=== PATIENT | female | born 1945 | race Caucasian/White ===

== ENCOUNTER 2021-08-06 01:11 | Inpatient (IN) | payer OTHER ==
[2021-08-06] VITALS (62 sets, daily range): BP systolic 49–154; BP diastolic 31–96
[~2021-08-06] VITALS: Ht 152.4 cm; Wt 112.9 kg
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
[2021-08-06 03:17] LABS: HEMATOCRIT 44.6 % (37.0-47.0); HEMOGLOBIN 14.1 gm/dL (12.0-15.0); MCH 31.5 pg (26.0-34.0); MCHC 31.6 g/dL (28.0-37.0); MCV 99.5 fL (80.0-100.0); PLATELET COUNT 257 thou/uL (150-400); RBC 4.48 mil/uL (4.20-5.00); RDW 16.6 % (10.5-14.5); WBC 13.1 thou/uL (4.0-11.0)
[2021-08-06 03:29] LABS: APTT 21.4 Seconds (24.5-32.8); INR 1.1; PROTIME 11.9 Seconds (10.5-12.1)
[2021-08-06 04:24] LABS: ANISOCYTOSIS 1+
[2021-08-06 04:40] LABS: ALBUMIN 2.7 g/dL (3.4-5.0); CALCIUM 9.8 mg/dL (8.5-10.1); CREATININE 1.8 mg/dL (0.6-1.0); POTASSIUM 4.1 mmol/L (3.5-5.1); TOTAL BILIRUBIN 0.6 mg/dL (0.2-1.0); TOTAL PROTEIN 6.4 g/dL (6.4-8.2)
--- NOTE | 2021-08-06 07:48 | EKG ---
[address] [place] [address] ELECTROCARDIOGRAM REPORT Name: BRIANNE SINHA Jatinder Room #: 208-P ADM IN M.R.#: [id number] Admission: 08/06/21 Attend Phys: Chelita Garcia MD Discharge: Date of : 43 Report #: [id number] [facility] ED Test Date: 2021-08-06 Test Time: 05:07:11 Pat Name: BRIANNE SINHA Department: Room: 208 Gender: F Jig Grinder Set Up Operator: CECI : 1945 Requested By: Aleks Burkett Order Number: [id number] MD: Quan Fernandez Measurements Intervals [place] Rate: 119 P: [place]: QRS: 30 QRSD: 140 T: -45 QT: 344 QTc: 485 Interpretive Statements Atrial fibrillation Right bundle branch block ST depr, consider ischemia, anterolateral lds Baseline wander in lead(s) V5,V6 No previous ECG available for comparison Electronically Signed On 08-06-2021 7:47:37 GASTROINTESTINAL TECHNICIAN by Quan Fernandez [email or web address] <ELECTRONICALLY SIGNED> By: Quan Fernandez MD, [facility] 08/06/21 0747 D: 01/506 6 Quan Fernandez MD, FACC /EPI
[2021-08-06] MEDS ORDERED: BUSPIRONE HCL5 MG PO (08:50)
[2021-08-06] MEDS ORDERED: BUMETANIDE 1 MG1 M1 PO (08:50)
[2021-08-06] MEDS ORDERED: ELIQUIS5 MG PO (08:51)
[2021-08-06] MEDS ORDERED: DOXYCYCLINE HY100 M3 PO (08:51)
[2021-08-06] MEDS ORDERED: METOPROLOL TART25 MG PO (08:52)
[2021-08-06] MEDS ORDERED: NITROGLYCERIN0.4 MG (08:53)
[2021-08-06] MEDS ORDERED: NOVOLOG100 UNIT/1 SUBQ (08:54)
[2021-08-06] MEDS ORDERED: POTASSIUM20 MEQ/15 PO (08:55)
[2021-08-06] MEDS ORDERED: ALPRAZOLAM 0.0.25 M1 PO (08:55)
[2021-08-06] MEDS ORDERED: PREDNISONE 10 M10 MG PO (08:58)
[2021-08-06 10:19] LABS: BE(vivo) -4.9 mmol/L (-2 to +3); HCO3 19.1 mmol/L (22.0-26.0); PCO2 32.1 mmHg (35.0-45.0); PO2 76.7 mmHg (80.0-100.0); pH 7.392 (7.360-7.450); sO2 95.4 % (92.0-98.0)
[2021-08-06 10:48] LABS: HEMATOCRIT 40.6 % (37.0-47.0); MCH 31.9 pg (26.0-34.0); MCHC 29.2 g/dL (28.0-37.0); RBC 3.72 mil/uL (4.20-5.00); RDW 17.4 % (10.5-14.5); WBC 24.9 thou/uL (4.0-11.0)
[2021-08-06 10:52] LABS: HEMOGLOBIN 11.9 gm/dL (12.0-15.0); MCV 109.4 fL (80.0-100.0)
--- NOTE | 2021-08-06 12:45 | NUR ---
ORDERS RECEIVED FOR PT EVAL AND TREAT. Pt JUST TRANSFERRED FROM CCU TO ICU FOR HIGHER LEVEL OF CARE. WILL NEED NEW ORDERS ONCE Pt IS MEDICALLY STABLE TO INITIATE PT EVALUATION.
--- NOTE | 2021-08-06 13:43 | NUR ---
A RIGHT IJ CENTRAL LINE WAS PLACED AFTER A BEDSIDE TIMEOUT WAS COMPLETED. THE 25CM LINE WAS ADVANCED TO 7CM EXTERNAL AFTER A BEDSIDE TIMOEUT WAS COMPLETED. A STAT CHEST XRAY WAS ORDERED FOR CONFIRMATION
[2021-08-06 14:29] LABS: HEMATOCRIT 30.2 % (37.0-47.0)
[2021-08-06 14:37] LABS: CALCIUM 8.7 mg/dL (8.5-10.1); POTASSIUM 3.7 mmol/L (3.5-5.1)
[2021-08-06 14:38] LABS: HEMOGLOBIN 9.5 gm/dL (12.0-15.0)
--- NOTE | 2021-08-06 17:52 | NUR ---
PT BROUGHT TO ROOM 244 FROM 208, COUGHING UP COPIOUS AMOUNTS OF BLOOD, WITH LARGE BRIGHT RED BLOOD CLOTS PRESENT. PT GIVEN SUCTION TO SUCTION HER MOUTH OUT PRN, PT IS ALERT AND ORIENTED TO PERSON PLACE AND EVENTS. DR. MATHEWS AND DR. PATEL AT BEDSIDE AT 1355, TO EXAMINE PATIENT AND WERE AWARE OF PT BEING TRANSFERRED OVER FROM . DR. MATHEWS PERFORMED BRONOSCOPY ON PT AT BEDSIDE IN WHICH HE NOTED BLEEDING FROM THE LEFT LUNG. PT STARTED ON NEOSYNEPHRINE AT 1400 TO HELP MAINTAIN BLOOD PRESSURE SHE WAS BECOMING MORE AND MORE HYPOTENSIVE. PRESSORS RAN FOR APPROX 2-2.5HRS WITH GOOD RESPONSE TO MEDICATIONS. PER DR. LEONE AT BEDSIDE AT 1700 WAS INSTRUCTED TO TURN OFF PT PRESSORS AND TAKE HER FOR STAT CHEST CT SCAN. PT CONTINUES TO COUGH UP LARGE BLOOD CLOTS WITH IT BEING BRIGHT RED IN COLOR. PT TAKEN TO CT WITH 2 RNS, ON O2 VIA NC AT 2LPM. PORTABLE SUCTION ALSO TAKEN FOR PRECAUTIONING REASONS. PT TOELRATED CT SCAN WITHOUT INCIDENT. BLOOD TRANSFUSION STARTED AT 1745. NO FEVERS, PT COOL TO THE TOUCH. PT BREATHING NORMALLY ON NC AT 2LPM. ALSO PER DR. LEONE, PT IS TO RECIEVE 1 UNIT OF BLOOD ANA AND TO TURN ON PRESSORS SHOULD PT NOT BE ABLE TO MAINTAIN A MAP ABOVE 60. PT DAUGHTERS WERE AT BEDSIDE AND ABLE TO VISIT WITH PATIENT AFTER CT SCAN.
[2021-08-06 21:56] LABS: HEMATOCRIT 32.4 % (37.0-47.0); HEMOGLOBIN 10.2 gm/dL (12.0-15.0)
[2021-08-07] VITALS (76 sets, daily range): BP systolic 91–145; BP diastolic 50–102
--- NOTE | 2021-08-07 01:14 | NUR ---
PT FINISHED RECEIVING 1 UNIT PRBCS AROUND 2029. SHE TOLERATED TRANSFUSION WELL. PT CONTINUES TO COUGH UP BRIGHT RED BLOOD WITH CLOTS. COUGH MEDICATION GIVEN. MAP> 65 WITH NEOSYNEPHRINE GTT INFUSING. AFIB ON TELE. HR 110S-120S WHEN PT IS AT REST, BUT INCREASES TO 130S-14OS WITH COUGHING. WHEN HR SUSTAINED 130S-140S, NOTIFIED DR SCANLON. ORDER RECEIVED TO START CARDIZEM GTT. HR HAS IMPROVED WHILE ON CARDIZEM. INCREASED ELENO DRIP TO MAINTAIN BP SUPPORT WHILE ON CARDIZEM. AROUND 2329, PT BECOME MORE ANXIOUS, C/O SOA AND DIFFICULTY BREATHING. LUNGS WITH LOUD CRACKLES NOTED. NOTIFIED BINDERY MANAGER BALL ENDER FOR HOSPITALIST. ORDERS RECEIVED TO GIVE LASIX IV ONE TIME FOR LIKELY FLUID OVERLOAD. SCHAEFER CATHETER ALSO PLACED PER PROVIDER ORDER. PT IS RESTING BETTER AT THIS TIME. WILL CONTINUE TO MONITOR CLOSELY.
[2021-08-07 05:17] LABS: HEMATOCRIT 29.1 % (37.0-47.0); HEMOGLOBIN 9.4 gm/dL (12.0-15.0); MCH 31.4 pg (26.0-34.0); MCHC 32.3 g/dL (28.0-37.0); PLATELET COUNT 222 thou/uL (150-400); RDW 17.2 % (10.5-14.5); WBC 24.7 thou/uL (4.0-11.0)
[2021-08-07 05:18] LABS: MCV 97.2 fL (80.0-100.0)
[2021-08-07 05:37] LABS: CREATININE 2.4 mg/dL (0.6-1.0); POTASSIUM 4.5 mmol/L (3.5-5.1)
--- NOTE | 2021-08-07 06:00 | NUR ---
INCREASED CARDIZEM GTT FROM 5MG/HR TO 10 MG/HR. HR NOW 100S-110S. BP STABLE WITH NEOSYNEPHRINE GTT. POOR URINE OUTPUT VIA SCHAEFER AFTER LASIX WAS GIVEN. PT APPEARS TO BE FEELING SLIGHTLY BETTER THIS MORNING.
[2021-08-07 07:08] LABS: URINE BILIRUBIN NEGATIVE (Negative); URINE BLOOD TRACE (Negative); URINE COLOR YELLOW; URINE GLUCOSE-RANDOM* NEGATIVE (Negative); URINE KETONES NEGATIVE (Negative); URINE LEUKOCYTES-REFLEX 2+ (Negative); URINE NITRITE-REFLEX NEGATIVE (Negative); URINE PROTEIN (DIPSTICK) TRACE (Negative); URINE UROBILINOGEN 0.2 E.U./dl (0.2-1.0)
[2021-08-07 07:09] LABS: URINE CLARITY HAZY
[2021-08-07 07:22] LABS: CASTS None Seen /LPF (None Seen); SQUAMOUS >10 Many /LPF (0-3)
[2021-08-07 07:23] LABS: BACTERIA-REFLEX 1-9 Few /HPF (None Seen); CRYSTALS None Seen /LPF (None Seen); URINE RBC None Seen /HPF (NONE SEEN); URINE WBC-REFLEX >25 Many /HPF (0-5); YEAST-REFLEX Present (None Seen)
--- NOTE | 2021-08-07 08:20 | NUR ---
>>>>>>>>>> 0820 Azalea Medley APRN present. updated on pt status. Dr. Santiago present, updated. >>>>>>>>>> 1100 Dr. George present. updated on pt status, red/dk red bloody clots coughed up several times per hour by pt. she is maintaining her airway, using yankauer to suction orally, in addition to coughing up blood/clots onto bath towel on her chest. pt alert, drowsy at times, anxious at times and prefers not be alone. iv fluids pending with goal for uop 20 cc/hr. >>>>>>>>>> 1400 Dr. George returned call. updated on pt continuing to cough up blood. blood clots clotted the yankauer and suction tubing. within 1 hr, 15 minutes, she clotted new yankauer and the entire suction tubing was filled with additional blood. updated Dr. George, orders received for interventional radiology consult- Dr. Nguyen. consult placed- spoke with Azalea Medley APRN. Dr. Nguyen and Azalea, bradley to speak with pt and called elizabeth Osman for consent. >>>>>>>>>>> report given to GUY Lara RN. at 1508, pt to IR per icu bed with equipment monitor phototypesetting and IR team. >>>>>>>>>>> report received from GUY Lara RN. at 1730, pt received in icu. resp even and unlabored, resting quietly, airway patent, no coughing or evidence of bleeding. calls placed to Dr. Hampton regarding update on pt status since in IR, received IV contrast, pre existing low urine outpt over last 24 hrs, current renal labs. orders received. Dr. George updated on pt status. also, ok with low urine output parameter for tonight. called elizabeth Osman and Raul, brother, updated on procedure and pt outcome. informed pt urine output has been low and iv fluids are infusing. questions answered to satisfaction.
[2021-08-07 10:32] LABS: ABSOLUTE NEUTROPHILS 19.3 thou/uL (1.4-8.2); ANISOCYTOSIS 1+; METAMYELOCYTES 3 %; MYELOCYTES 3 %
--- NOTE | 2021-08-07 13:15 | NUR ---
76-year-old female complaining of coughing up blood. HX:A. fib anticoagulated with Eliquis, CAD status post cardiac stent, history of congestive heart failure with unknown LVEF, hypertension, hyperlipidemia, diabetes, hypothyroidism, anxiety, CKD with unknown stage. Patient does report hospital admission about a week ago at [facility] for chest pain. Patient does report the scope was done (unknown bronchoscopy versus EGD) with normal results. Chart review, Discussed during los with the attending physician. Cont. on Cardizem gtt, o2 per nasal cannula. No anticipated dc today. will cont following as needed for dc needs.
[2021-08-07 14:53] LABS: HEMOGLOBIN 7.7 gm/dL (12.0-15.0); MCH 31.3 pg (26.0-34.0); MCHC 32.1 g/dL (28.0-37.0); MCV 97.6 fL (80.0-100.0); RBC 2.46 mil/uL (4.20-5.00); RDW 17.7 % (10.5-14.5); WBC 22.4 thou/uL (4.0-11.0)
--- NOTE | 2021-08-07 15:24 | 2DMMODE ---
[facility] [address] 2 D/M-MODE ECHOCARDIOGRAM Name: BRIANNE SINHA Room #: 244-P ADM IN M.R.#: [id number] Admission: 08/06/21 Attend Phys: Chelita Garcia MD Discharge: Date of : 43 Report #: [id number] THIS REPORT FOR: cc: Gary Jenkins MD, Srinath MD Santiago, Patrick MD [facility] ~ ADDENDUM APPROVED REPORT Study performed: 08/07/2021 14:19:34 EXAM: Comprehensive 2D, Doppler, and color-flow Echocardiogram Patient Location: ICU Room #: 244 Status: routine BSA: 1.95 HR: 115 bpm BP: 102/78 mmHg Rhythm: Atrial Fibrillation Other Information Study Quality: Good Indications Diabetes Atrial Fibrillation CAD Hypertension/HDD 2D Dimensions IVSd: 7.88 (7-11mm) LVOT Diam: 21.05 (18-24mm) LVDd: 55.58 mm PWd: 10.67 (7-11mm) Ascending Ao: 33.09 (22-36mm) LVDs: 39.98 (25-40mm) Left Atrium: 41.17 (27-40mm) Aortic Root: 30.08 mm IVC: 21.00 mm Aortic Valve AoV Peak Kiran.: 0.77 m/s AO Peak Gr.: 9.05 mmHg LVOT Max P.72 mmHg LVOT Max V: 0.96 m/s PRIYA Vmax: 4.36 cm2 Pulmonary Valve PV Peak Kiran.: 0.77 m/s PV Peak Gr.: 2.36 mmHg [facility] [address] [place] [address] 2 D/M-MODE ECHOCARDIOGRAM Name: WYATTSELINSANKETDasia Tobias Room #: 244-P [facility] IN [facility]#: [id number] Admission: 08/06/21 Attend Phys: Chelita Garcia MD Discharge: Date of : 43 Report #: [id number] Tricuspid Valve TR Peak Kiran.: 2.59 m/s TR Peak Gr.: 26.91 mmHg PA Pressure: 37.00 mmHg Left Ventricle The left ventricle is normal size. There is normal left ventricular wall thickness. The left ventricular systolic function is normal. The left ventricular ejection fraction is within the normal range. LVEF is >55%. This study is not technically sufficient to allow evaluation of the LV diastolic function due to atrial fibrillation. Right Ventricle The right ventricle is normal size. The right ventricular systolic function is normal. Atria Left atrium is dilated. Right atrium is dilated. Aortic Valve The aortic valve is normal in structure. Mild aortic regurgitation. There is no aortic valvular stenosis. Mitral Valve The mitral valve is normal in structure. Trace mitral regurgitation. No evidence of mitral valve stenosis. Tricuspid Valve The tricuspid valve is normal in structure. There is mild tricuspid regurgitation. Estimated PAP 37 mmHg. There is mild pulmonary hypertension. Pulmonic Valve The pulmonary valve is normal in structure. Trace pulmonic regurgitation. Great Vessels The aortic root is normal in size. IVC is dilated and collapses <50% with inspiration. Pericardium There is no pericardial effusion. <Conclusion> [facility] [address] [place] [address] 2 D/M-MODE ECHOCARDIOGRAM Name: WYATTSELINSANKETDasia Tobias Room #: 244-P [facility] IN .R.#: [id number] Admission: 08/06/21 Attend Phys: Chelita Garcia MD Discharge: Date of : 43 Report #: [id number] Study performed in atrial fibrillation Normal left ventricle size/wall thickness Ejection fraction 55% and Normal right ventricular size/function Mild biatrial enlargement Mild aortic valve insufficiency Normal mitral valve structure and function Mild tricuspid valve insufficiency Pulmonary systolic pressure estimated 37 mmHg No pericardial effusion Normal aortic root size. <ELECTRONICALLY SIGNED> By: Quan Fernandez MD, FACC 08/07/21 1524 1524 1524 Quan Fernandez MD, FACC /INF
[2021-08-08] VITALS (71 sets, daily range): BP systolic 93–136; BP diastolic 43–92
[2021-08-08 05:02] LABS: HEMATOCRIT 20.6 % (37.0-47.0); RBC 2.08 mil/uL (4.20-5.00)
[2021-08-08 05:13] LABS: ALBUMIN 2.2 g/dL (3.4-5.0); CREATININE 2.8 mg/dL (0.6-1.0); PHOSPHORUS 5.6 mg/dL (2.5-4.9); POTASSIUM 4.5 mmol/L (3.5-5.1)
[2021-08-08 05:16] LABS: HEMOGLOBIN 6.5 gm/dL (12.0-15.0); MCH 31.5 pg (26.0-34.0); MCHC 31.8 g/dL (28.0-37.0); MCV 98.9 fL (80.0-100.0); RDW 17.3 % (10.5-14.5); WBC 23.4 thou/uL (4.0-11.0)
--- NOTE | 2021-08-08 09:40 | NUR ---
RECEIVED REPORT FROM OUT GOING RN.
--- NOTE | 2021-08-08 11:25 | NUR ---
Discussed during los with the attending physician and during unit rounds with pulmonary MD. Hgb 6.5, getting blood. O2 2 L/nc. Will cont following as needed for dc needs.
[2021-08-08 17:11] LABS: HEMATOCRIT 23.5 % (37.0-47.0); HEMOGLOBIN 7.5 gm/dL (12.0-15.0)
[2021-08-09] VITALS (44 sets, daily range): BP systolic 88–118; BP diastolic 34–77
[2021-08-09 05:29] LABS: HEMOGLOBIN 6.7 gm/dL (12.0-15.0); WBC 21.8 thou/uL (4.0-11.0)
[2021-08-09 05:30] LABS: HEMATOCRIT 20.8 % (37.0-47.0); MCH 31.2 pg (26.0-34.0); MCHC 32.3 g/dL (28.0-37.0); MCV 96.3 fL (80.0-100.0); RBC 2.16 mil/uL (4.20-5.00); RDW 17.9 % (10.5-14.5)
[2021-08-09 05:59] LABS: ALBUMIN 2.3 g/dL (3.4-5.0); CALCIUM 9.2 mg/dL (8.5-10.1); CREATININE 2.9 mg/dL (0.6-1.0); PHOSPHORUS 6.3 mg/dL (2.5-4.9); POTASSIUM 4.2 mmol/L (3.5-5.1); TOTAL BILIRUBIN 0.9 mg/dL (0.2-1.0); TOTAL PROTEIN 5.3 g/dL (6.4-8.2)
--- NOTE | 2021-08-09 06:06 | NUR ---
DR. HENDERSON SAID TO HAVE THE DIALYSIS PORT PULLED TODAY. SHE NO LONGER NEEDS IT. INFORMATION WILL BE PASSED ON TO ONCOMING SHIFT.
--- NOTE | 2021-08-09 08:11 | NUR ---
pt rn paged dr ponce. this rn spoke with kris for pt rn. let dr ponce know that pt hemoglobin was 6.[address] ponce stated he did not want to transfuse at this time. this rn updated pt rn.
[2021-08-09 11:57] LABS: HEMOGLOBIN 6.5 gm/dL (12.0-15.0); RBC 2.12 mil/uL (4.20-5.00)
[2021-08-09 11:59] LABS: HEMATOCRIT 20.3 % (37.0-47.0); MCH 30.5 pg (26.0-34.0); MCHC 31.9 g/dL (28.0-37.0); MCV 95.6 fL (80.0-100.0); RDW 17.8 % (10.5-14.5); WBC 18.5 thou/uL (4.0-11.0)
--- NOTE | 2021-08-09 12:26 | NUR ---
RN NOTIFIED VIRGINIE OLMOS APRN OF HGB 6.5. ELECTRONIC SEMICONDUCTOR PROCESSOR TO PLACE ORDERS FOR BLOOD TRANSFUSION X1 UNIT.
--- NOTE | 2021-08-09 15:45 | NUR ---
Chart review. Hbg 6.7 this am. o2 2 L/nasal cannula. no anticipated dc.
--- NOTE | 2021-08-09 15:46 | NUR ---
PT'S BROTHER CALLED AT THIS TIME, PROVIDED CORRECT SECURITY CODE TO OBTAIN PT INFORMATION. RN PROVIDED UPDATE ON POC.
--- NOTE | 2021-08-09 18:26 | NUR ---
PT IS CURRENTLY PROGRESSING TOWARDS GOALS OF CARE EVIDENCED BY DECREASED NEED FOR PRESSORS. PT CURRENTLY RECEIVING ONLY 0.1 OF ELENO TO MAINTAIN MAP >60. PT RECEIVED 1U PRBCS TODAY FOR LOW HGB; NO NEW NOTED BLEEDING THIS SHIFT, NO HEMOPTYSIS.
[2021-08-10] VITALS (38 sets, daily range): BP systolic 90–144; BP diastolic 52–79
[2021-08-10 05:11] LABS: MCH 30.5 pg (26.0-34.0); MCHC 32.8 g/dL (28.0-37.0); MCV 93.1 fL (80.0-100.0); RDW 18.9 % (10.5-14.5)
[2021-08-10 05:13] LABS: HEMOGLOBIN 7.6 gm/dL (12.0-15.0); RBC 2.48 mil/uL (4.20-5.00); WBC 15.3 thou/uL (4.0-11.0)
[2021-08-10 05:27] LABS: CALCIUM 9.6 mg/dL (8.5-10.1); CREATININE 3.2 mg/dL (0.6-1.0); POTASSIUM 4.1 mmol/L (3.5-5.1)
--- NOTE | 2021-08-10 10:35 | NUR ---
Nurse updated patients daughter on plan of care, current treatments, and status. Her questions were answered.
--- NOTE | 2021-08-10 12:36 | NUR ---
Patients daughter, Jacqui, called and expressed conern that patient speech is not how it normally is. Nurse updated her and expressed that the patient is drowsy today and mid sentence falls asleep. She expressed that at home when patient is drowsy, she carries on a normal conversation. This information was relayed to Dr. Santiago, waiting return orders.
--- NOTE | 2021-08-10 13:43 | NUR ---
Nurse with assistance transported patient to Cat Scan in bed with oxygen from 7743-4530, when we arrived back in room. She tolerated transport and movement well. She went with Jalil gtt. Upon return, vital signs within the clinical parameters for Jalil gtt to be shut off. Education and reassurance provided throughout the process. She is resting quietly and calmly at this time. She did answer all orientation questions correctly. Nurse to continue to monitor vital signs and patient assessments.
--- NOTE | 2021-08-10 14:10 | NUR ---
Nurse updated patient daughter on current status and cat scan test. She expressed the physician tried to call her but they got disconnected. Nurse sent a message to Dr. Santiago for further contact.
--- NOTE | 2021-08-10 17:23 | NUR ---
Patient progressing towards plan of care as evidenced by ability to continue off the Jalil gtt, sustaining within clinical parameters blood pressure. She does have moments of confusion, however she reorients appropriately and then laughs. Plan of care is to continue to monitor patient status, vital signs, and urine output.
--- NOTE | 2021-08-11 03:09 | NUR ---
REPORT RECIEVED FROM ICU. PT TRANSFERRED TO ROOM 434. REORIENTED PT TO SURROUNDINGS. ASSESSMETN COMPLETE. R TL IJ CDI. NC IN PLACE. TELE LEADS ON. PT DENIES ANY PAIN. ALL NEEDS MET. PT REFUSED FOR US TO CALL FAMILY TONIGHT TO LET THEM KNOW ABOUT TRANSFER. HOURLY ROUNDING. CALL LIGHT IN REACH
[2021-08-11 07:44] VITALS: BP 130/68
[2021-08-11 09:07] LABS: ALBUMIN 3.1 g/dL (3.4-5.0); CALCIUM 9.6 mg/dL (8.5-10.1); CREATININE 3.3 mg/dL (0.6-1.0); PHOSPHORUS 6.2 mg/dL (2.6-4.7)
[2021-08-11 10:52] LABS: BE(vivo) -11.8 mmol/L (-2 to +3); HCO3 14.4 mmol/L (22.0-26.0); PCO2 33.9 mmHg (35.0-45.0); PO2 143.6 mmHg (80.0-100.0); pH 7.246 (7.360-7.450); sO2 98.5 % (92.0-98.0)
--- NOTE | 2021-08-11 11:25 | NUR ---
DR. DELATORRE NOTIFIED OF CRITICAL LAB; ABG PH 7.246, PCO2 33.9, PO2 143.6, BICARB 14.4; BUN AND CREATINE ALSO GIVEN. DR DELATORRE ASKED THIS NURSE TO [facility] REGARDING LABS. DR. CISNEROS PAGED AND PHONE CALL RETURNED; FOLLOWING LABS GIVEN, ABG, BUN, AND CR. NO ORDERS GIVEN.
[2021-08-11 16:15] VITALS: BP 150/92
[2021-08-11 20:41] VITALS: BP 148/90
--- NOTE | 2021-08-12 03:33 | NUR ---
ASSUMED CARE OF PT AT 1900 REPORT RECIEVED SHAHBAZ ASSESSMENT COMPLETE. REORIENTATION PROVIDED D/T CONFUSION. PT LETHARGIC. NO C/O PAIN. IV ABTS RUNNING PER SEP. R TL IJ CDI, SECURE. MEDS GIVEN PER SEP. Q2 HOUR REPOSITIONING. [address] ALL NEEDS MET, CALL LIGHT IN REACH
[2021-08-12 05:58] LABS: HEMOGLOBIN 6.9 gm/dL (12.0-15.0); RDW 18.5 % (10.5-14.5); WBC 9.7 thou/uL (4.0-11.0)
[2021-08-12 06:00] LABS: HEMATOCRIT 20.2 % (37.0-47.0); MCH 31.3 pg (26.0-34.0); MCHC 33.9 g/dL (28.0-37.0); MCV 92.2 fL (80.0-100.0); RBC 2.19 mil/uL (4.20-5.00)
[2021-08-12 06:30] LABS: ALBUMIN 3.3 g/dL (3.4-5.0); CREATININE 3.4 mg/dL (0.6-1.0); POTASSIUM 3.7 mmol/L (3.5-5.1)
[2021-08-12 16:40] VITALS: BP 146/88
--- NOTE | 2021-08-12 16:46 | NUR ---
Met with patient who resides in ltc at [facility]. Patient reports she bed bound at facility and uses oxygen. Reviewed role of casemgt. Patient agreeable for casemgt. Sp with dtr. They are interested in new facility. Discussed can start the process but likely return to facility at ma. Faxed referral to [facility]. Dtr reports they are interested in new facility in [facility]. [facility] Updated [facility] as well. Casemgt following
[2021-08-12 19:17] VITALS: BP 133/80
--- NOTE | 2021-08-12 19:18 | NUR ---
PATIENT RESTING IN BED COMFORTABLY, SCHAEFER REMOVED TODAY, BED BATH GIVEN, ON OXYGEN, CALL LIGHT WITHIN REACH, WILL CONTINOUS MONITORING.
--- NOTE | 2021-08-13 04:05 | NUR ---
ASSUMED PT CARE THIS PM. PT IS ALERT AND ORIENTED X2. PT IS ON 2L OF O2 VIA NC.PT HAS +3 TO THE FEET.PT HAS EXTERNAL FEMALE CATH IN PLACE. PT C/O PAIN WHICH WAS MANAGED BY PRN MEDS. PT DID NOT C/O N/V. MEDS WERE GIVEN PER EMAR ORDERS. FALL PRECAUTIONS IN PLACE. WILL CONTINUE TO MONITOR.
[2021-08-13 06:31] LABS: HEMOGLOBIN 6.6 gm/dL (12.0-15.0); WBC 9.2 thou/uL (4.0-11.0)
[2021-08-13 06:32] LABS: MCH 31.3 pg (26.0-34.0); MCV 92.2 fL (80.0-100.0); RBC 2.1 mil/uL (4.20-5.00); RDW 18.1 % (10.5-14.5)
[2021-08-13 06:36] LABS: HEMATOCRIT 19.4 % (37.0-47.0)
[2021-08-13 07:01] LABS: ALBUMIN 3.2 g/dL (3.4-5.0); CREATININE 3.4 mg/dL (0.6-1.0); PHOSPHORUS 4.8 mg/dL (2.5-4.9); POTASSIUM 3.2 mmol/L (3.5-5.1)
[2021-08-13 08:00] VITALS: BP 127/81
[2021-08-13 09:03] VITALS: BP 120/67; BP 135/88
--- NOTE | 2021-08-13 10:07 | NUR ---
ASSUMED PT CARE THIS AM. PT HAS PICC LINE TRIPLE LUMEN. NIGHT NURSE INFORMED COATER HELPER THAT HGB WAS 6.6. SENT TYPE AND CROSS THIS AM. CURRENTLY INFUSING 1 UNIT OF BLOOD. PT HAS TELE MONITOR ON AND ON 2L O2 NC. PT IS ACCUCHECK ACHS. PT HAS EXTERNAL CATH PUREWICK IN PLACE. AWAITING TO FINISH TRANSFUSING BLOOD AND WILL SENT H&H TO LAB AFTERWARDS. CALLED PT DAUGHTER/DPOA FOR TELEPHONE CONSENT THIS AM AND INFORMED AND EDUCATED REGARDING PT LOW HGB. WILL CONTINUE TO MONITOR PT. FOLLOW POC.
[2021-08-13 12:41] LABS: HEMATOCRIT 22.5 % (37.0-47.0); HEMOGLOBIN 7.5 gm/dL (12.0-15.0)
--- NOTE | 2021-08-13 13:09 | NUR ---
Assess for length of stay. Admit with hemoptysis. Hx DM, CKD. Pt reports decreased appetite and intake past few days, stating foods difficult to chew and eat. Requests mech altered chopped diet and wants to try Nepro supplement. Feeding self, but slow to eat. Reported home wts around 220 lb and current wt about 11 lb higher. Renal following and indicates no dialysis. Low nutrition risk with appropriate nutrition interventions in place.
[2021-08-13 16:02] VITALS: BP 136/87
[2021-08-13 18:58] VITALS: BP 133/92
--- NOTE | 2021-08-14 02:54 | NUR ---
ASSUMED PT CARE THIS PM. PT IS ALERT AND ORIENTEDB TO SELF. PT HAS +2 EDEMA TO FEET. PT HAS EXTERNAL FEMALE CATH IN PLACE. PT IS ON RA. MEDS WERE GIVEN PER EMAR ORDERS. NO VISIBLE SIGN OF DISTRESS WAS NOTED. FALL PRECAUTIONS IN PLACE. WILL CONTINUE TO MONITOR.
[2021-08-14 03:09] LABS: HEMATOCRIT 28.7 % (37.0-47.0); HEMOGLOBIN 9.1 gm/dL (12.0-15.0); MCH 31.3 pg (26.0-34.0); MCHC 31.9 g/dL (28.0-37.0); RBC 2.92 mil/uL (4.20-5.00); WBC 12.1 thou/uL (4.0-11.0)
[2021-08-14 03:30] LABS: MCV 98.1 fL (80.0-100.0)
[2021-08-14 04:20] LABS: ALBUMIN 3.3 g/dL (3.4-5.0); CALCIUM 8.8 mg/dL (8.5-10.1); CREATININE 2.9 mg/dL (0.6-1.0); PHOSPHORUS 4.8 mg/dL (2.5-4.9)
[2021-08-14 04:50] LABS: POTASSIUM 5.3 mmol/L (3.5-5.1)
[2021-08-14 08:01] VITALS: BP 149/85
[2021-08-14 11:45] VITALS: BP 132/74
--- NOTE | 2021-08-14 14:37 | NUR ---
Patient to dc to [facility]. Notified dtr. Chart copied. Stretcher van to transport. RN has number for report no further needs.
== END 2021-08-14 14:30 | DRG 853 ==
LOC: ER 01:11 → 4S 05:22 → EROBS 05:22 → ICU 05:22 → 2N 06:10 → ICU 12:27 → 4S 08-11 02:29
PROVIDERS: Emergency Medicine; Hospitalist; Internal Medicine Pulmonary Disease; Nurse Practitioner; Nurse Practitioner Family; ADMIT Internal Medicine; ATTEND Internal Medicine
PROC: 02HV33Z Insertion of Infusion Device into Superior Vena Cava, Percutaneous Approach (ICD-10-PCS; principal; 2021-08-06)
PROC: 0BJ08ZZ Inspection of Tracheobronchial Tree, Via Natural or Artificial Opening Endoscopic (ICD-10-PCS; principal; 2021-08-06)
PROC: 30233N1 Transfusion of Nonautologous Red Blood Cells into Peripheral Vein, Percutaneous Approach (ICD-10-PCS; principal; 2021-08-06)
PROC: 03LY3ZZ Occlusion of Upper Artery, Percutaneous Approach (ICD-10-PCS; 2021-08-07)
PROC: B31N1ZZ Fluoroscopy of Other Upper Arteries using Low Osmolar Contrast (ICD-10-PCS; 2021-08-07)
PROC: B4181ZZ Fluoroscopy of Bilateral Renal Arteries using Low Osmolar Contrast (ICD-10-PCS; 2021-08-07)
DX: A41.9 Sepsis, unspecified organism (principal); N17.0 Acute kidney failure with tubular necrosis; J18.9 Pneumonia, unspecified organism; R04.2 Hemoptysis; D68.32 Hemorrhagic disorder due to extrinsic circulating anticoagulants; D62 Acute posthemorrhagic anemia; E87.1 Hypo-osmolality and hyponatremia; I48.21 Permanent atrial fibrillation; I42.9 Cardiomyopathy, unspecified; R04.89 Hemorrhage from other sites in respiratory passages; Z68.42 Body mass index [BMI] 45.0-49.9, adult; I13.0 Hypertensive heart and chronic kidney disease with heart failure and stage 1 through stage 4 chronic kidney disease, or unspecified chronic kidney disease; N18.9 Chronic kidney disease, unspecified; Z20.822 Contact with and (suspected) exposure to COVID-19; E66.01 Morbid (severe) obesity due to excess calories; E78.5 Hyperlipidemia, unspecified; E03.9 Hypothyroidism, unspecified; I50.9 Heart failure, unspecified; Z96.1 Presence of intraocular lens; F41.9 Anxiety disorder, unspecified; E11.22 Type 2 diabetes mellitus with diabetic chronic kidney disease; Z66 Do not resuscitate; I25.10 Atherosclerotic heart disease of native coronary artery without angina pectoris; R53.81 Other malaise; R63.4 Abnormal weight loss; I95.9 Hypotension, unspecified; E83.39 Other disorders of phosphorus metabolism; J44.9 Chronic obstructive pulmonary disease, unspecified; T50.8X5A Adverse effect of diagnostic agents, initial encounter; Y92.89 Other specified places as the place of occurrence of the external cause; Z79.01 Long term (current) use of anticoagulants; Z88.1 Allergy status to other antibiotic agents; Z88.8 Allergy status to other drugs, medicaments and biological substances; Z90.710 Acquired absence of both cervix and uterus; Z90.49 Acquired absence of other specified parts of digestive tract; Z95.5 Presence of coronary angioplasty implant and graft; Z98.42 Cataract extraction status, left eye
CPT/HCPCS: 10078; 10100; 10203; 85076